=== PATIENT | male | born 1965 | race Caucasian/White ===

== ENCOUNTER 2022-03-23 14:11 | Emergency (ER) | payer BC ==
[~2022-03-23] VITALS: Ht 177.8 cm; Wt 69.9 kg
[2022-03-23 14:16] VITALS: BP 114/55
--- NOTE | 2022-03-23 14:34 | NUR ---
57/M WALKED IN C/O SHORTNESS OF BREATH D/T ASTHMA FLAREUP. PT STATES HE HAS BEEN GETTING ASTHMA FLAREUPS INTERMITTENTLY FOR 2 MONTHS. PT STATES RELIEF AFTER NEBULIZER USE BUT BEGAN HAVING INCREASED NEBULIZER USE LATELY FOR FREQUENT FLAREUPS. DENIES CHEST PAIN. STATES INTERMITTENT COUGH. DENIES FEVER. AAO4, AMBULATORY, ON ROOM AIR SATTING 98%. ON MONITOR.
--- NOTE | 2022-03-23 14:45 | NUR ---
EKG DONE AT BEDSIDE.
[2022-03-23 15:11] LABS: BASOPHILS % (AUTO) 0.6 % (0.0-2.0); EOSINOPHILS # (AUTO) 0.5 K/uL (0-0.4); EOSINOPHILS % (AUTO) 7.1 % (0.0-4.0); HEMATOCRIT 43.3 % (36-52); LYMPHOCYTES # (AUTO) 2.2 K/uL (2.0-11.5); LYMPHOCYTES % (AUTO) 33.2 % (20.5-51.1); MEAN CORPUSCULAR HEMOGLOBIN 30 pg (27-31); MEAN CORPUSCULAR HGB CONC 35 g/dL (33-37); MEAN CORPUSCULAR VOLUME 88.1 fL (80-94); MONOCYTES # (AUTO) 0.4 K/uL (0.8-1.0); MONOCYTES % (AUTO) 6.2 % (1.7-9.3); NEUTROPHILS # (AUTO) 3.5 K/uL (1.8-7.7); NEUTROPHILS % (AUTO) 52.9 % (42.2-75.2); PLATELET COUNT (AUTO) 183 K/uL (140-450); RED BLOOD CELL COUNT(AUTO) 4.91 MIL/uL (4.20-6.10); WHITE BLOOD COUNT (AUTO) 6.5 K/uL (4.8-10.8)
[2022-03-23] MEDS ORDERED: ALBUTEROL SULFATE/IPRATROPIU 3 ML SOL IH ONE (15:25)
[2022-03-23 15:46] LABS: ALBUMIN 3.9 g/dL (3.4-5.0); ANION GAP 11.6 (8-16); CARBON DIOXIDE 30.2 mmol/L (21-32); CREATININE 1.2 mg/dL (0.6-1.3); POTASSIUM 3.8 mmol/L (3.5-5.1); TOTAL BILIRUBIN 1.3 mg/dL (0.0-1.0)
[2022-03-23] MEDS ORDERED: PRED20TA5 PO (16:06)
[2022-03-23 16:15] VITALS: BP 116/63
== END 2022-03-23 16:19 | disposition home or self-care (01) ==
LOC: MED 14:11
DX: J44.9 Chronic obstructive pulmonary disease, unspecified (principal)
CPT/HCPCS: 36415; 71045; 80053; 83880; 84484; 85025; 93005; 94640; 94760; 99285; Q0092